=== PATIENT | female | born 1980 | race Caucasian/White ===

== ENCOUNTER → 2020-05-05 18:00 | Outpatient (BNVA) | payer SELFPAY | PROVIDERS: Visit Provider Family Medicine | DX: E11.9 Type 2 diabetes mellitus without complications (principal); J44.9 Chronic obstructive pulmonary disease, unspecified | CPT/HCPCS: 80053; 80061; 83036; 85025 ==

== ENCOUNTER → 2021-03-16 11:30 | Outpatient (BNVA) | payer SELFPAY | PROVIDERS: Visit Provider Family Medicine | DX: E78.2 Mixed hyperlipidemia (principal); E11.9 Type 2 diabetes mellitus without complications; I10 Essential (primary) hypertension; E28.2 Polycystic ovarian syndrome; J44.9 Chronic obstructive pulmonary disease, unspecified | CPT/HCPCS: 80053; 80061; 83036; 85025 ==

== ENCOUNTER → 2021-10-25 14:50 | Outpatient (BNVA) | payer OTHER, SELFPAY | PROVIDERS: Visit Provider Family Medicine | DX: E11.9 Type 2 diabetes mellitus without complications (principal); I10 Essential (primary) hypertension; J44.9 Chronic obstructive pulmonary disease, unspecified; J41.0 Simple chronic bronchitis | CPT/HCPCS: 80053; 83036; 85025 ==

== ENCOUNTER → 2022-03-07 14:34 | Outpatient (BNVA) | payer OTHER, MEDICAID, SELFPAY | PROVIDERS: PCP Family Medicine; Visit Provider Family Medicine | DX: J41.0 Simple chronic bronchitis (principal); J45.30 Mild persistent asthma, uncomplicated; F33.1 Major depressive disorder, recurrent, moderate; F32.9 Major depressive disorder, single episode, unspecified; F41.9 Anxiety disorder, unspecified; E11.9 Type 2 diabetes mellitus without complications; E78.2 Mixed hyperlipidemia; I10 Essential (primary) hypertension; M19.90 Unspecified osteoarthritis, unspecified site; J44.9 Chronic obstructive pulmonary disease, unspecified; E28.2 Polycystic ovarian syndrome; D64.9 Anemia, unspecified; G56.02 Carpal tunnel syndrome, left upper limb; T78.40XD Allergy, unspecified, subsequent encounter | CPT/HCPCS: 80048; 80061; 83036; 85025 ==

== ENCOUNTER → 2022-10-17 15:18 | Outpatient (BNVA) | payer MEDICAID, SELFPAY ==
[2022-09-25 10:58] VITALS: BP 142/70; BMI 48.5
== END ==
PROVIDERS: PCP Family Medicine; Visit Provider Family Medicine
DX: E11.9 Type 2 diabetes mellitus without complications (principal); I10 Essential (primary) hypertension
CPT/HCPCS: 80053; 83036

== ENCOUNTER → 2022-10-18 12:22 | Outpatient (BNVA) | payer MEDICAID, SELFPAY ==
[2022-09-25 10:58] VITALS: BP 142/70; BMI 48.5
== END ==
PROVIDERS: PCP Family Medicine; Visit Provider Family Medicine
DX: E11.9 Type 2 diabetes mellitus without complications (principal); I10 Essential (primary) hypertension; J44.9 Chronic obstructive pulmonary disease, unspecified
CPT/HCPCS: 85025

== ENCOUNTER → 2023-01-03 14:49 | Outpatient (BNVA) | payer MEDICAID, SELFPAY ==
[2022-09-25 10:58] VITALS: BP 142/70; BMI 48.5
== END ==
PROVIDERS: PCP Family Medicine; Visit Provider Family Medicine
DX: J45.909 Unspecified asthma, uncomplicated (principal); J44.9 Chronic obstructive pulmonary disease, unspecified; I10 Essential (primary) hypertension; E11.9 Type 2 diabetes mellitus without complications; F33.1 Major depressive disorder, recurrent, moderate; F41.9 Anxiety disorder, unspecified; T78.40XD Allergy, unspecified, subsequent encounter; M19.90 Unspecified osteoarthritis, unspecified site; E28.2 Polycystic ovarian syndrome
CPT/HCPCS: 71046; 80053; 83036

== ENCOUNTER → 2023-07-19 14:33 | Outpatient (BNVA) | payer MEDICAID, OTHER, SELFPAY ==
[2022-09-25 10:58] VITALS: BP 142/70; BMI 48.5
== END ==
PROVIDERS: PCP Family Medicine; Visit Provider Family Medicine
DX: E11.9 Type 2 diabetes mellitus without complications (principal)
CPT/HCPCS: 80053; 80061; 83036; 83721

== ENCOUNTER → 2024-01-16 14:21 | Outpatient (BNVA) | payer MEDICAID, SELFPAY ==
[2022-09-25 10:58] VITALS: BP 142/70; BMI 48.5
== END ==
PROVIDERS: PCP Family Medicine; Visit Provider Family Medicine
DX: E11.9 Type 2 diabetes mellitus without complications (principal); F33.1 Major depressive disorder, recurrent, moderate; F41.9 Anxiety disorder, unspecified; M54.50 Low back pain, unspecified; J41.0 Simple chronic bronchitis; I10 Essential (primary) hypertension; E78.2 Mixed hyperlipidemia; K21.9 Gastro-esophageal reflux disease without esophagitis; M19.90 Unspecified osteoarthritis, unspecified site
CPT/HCPCS: 72100; 80053; 83036

== ENCOUNTER 2024-02-14 12:52 | Outpatient (CLI) | payer MEDICAID, SELFPAY ==
[2022-09-25 10:58] VITALS: BP 142/70; BMI 48.5
--- NOTE | 2024-02-14 13:20 | MM_ITS ---
WS: [id number] BILATERAL SCREENING DIGITAL TOMOSYNTHESIS MAMMOGRAM WITH CAD HISTORY: Z12.39 - Encounter for other screening for malignant neop... COMPARISON: None available. Bilateral CC and MLO views with tomosynthesis and synthetic mammography submitted. Computer aided det ection analyzed. Breast composition: The breasts are almost entirely fatty. No suspicious masses, microcalcifications or architectural distortion. MM/MM scr BI tomosynthesis [id number] IMPRESSION: BI-RADS: 1 - Negative. FOLLOW UP: 1 Year Follow-up
== END 2024-02-14 12:53 | disposition home or self-care (01) ==
LOC: MOBLMAM 12:59
PROVIDERS: PCP Family Medicine; Visit Provider Family Medicine
DX: Z12.31 Encounter for screening mammogram for malignant neoplasm of breast (principal); R92.313 Mammographic fatty tissue density, bilateral breasts
CPT/HCPCS: 77063; 77067

== ENCOUNTER → 2024-07-07 13:40 | Outpatient (BNVA) | payer MEDICAID, SELFPAY ==
[2022-09-25 10:58] VITALS: BP 142/70; BMI 48.5
== END ==
PROVIDERS: PCP Family Medicine; Visit Provider Family Medicine
DX: E78.2 Mixed hyperlipidemia (principal); E11.9 Type 2 diabetes mellitus without complications
CPT/HCPCS: 80053; 80061; 83036

== ENCOUNTER → 2024-08-04 11:12 | Outpatient (BNVA) | payer MEDICAID, SELFPAY ==
[2022-09-25 10:58] VITALS: BP 142/70; BMI 48.5
== END ==
PROVIDERS: PCP Family Medicine; Visit Provider Family Medicine
DX: N17.9 Acute kidney failure, unspecified (principal); E11.9 Type 2 diabetes mellitus without complications
CPT/HCPCS: 80048

== ENCOUNTER → 2024-12-01 14:03 | Outpatient (BNVA) | payer MEDICAID, SELFPAY ==
[2022-09-25 10:58] VITALS: BP 142/70; BMI 48.5
== END ==
PROVIDERS: PCP Family Medicine; Visit Provider Family Medicine
DX: E11.9 Type 2 diabetes mellitus without complications (principal)
CPT/HCPCS: 80048; 83036